=== PATIENT | male | born 1950 | race Caucasian/White ===

== ENCOUNTER 2024-01-06 10:34 | Day surgery (SDC) | payer MEDICARE ==
[~2024-01-06] VITALS: Ht 180.3 cm; Wt 94.5 kg
[~2024-01-06 10:34] MED LIST: Ketorolac 30 MG/ML VIAL ONE; LR 1,000 ML IV SCH; Lidocaine PF 2% (20 MG/ML) 5 ML VIAL ONE; Ondansetron 4 MG/2 ML VIAL ONE; Rocuronium 50 MG/5 ML Multi-Dose VIAL ONE; fentaNYL 50 MCG/ML 5 ML VIAL ONE
[2024-01-06 11:48] VITALS: BP 139/75; PULSE 47; TEMP 97.5
[2024-01-06] MEDS ORDERED: TENORMIN 5050 MG/TAB PO (11:51)
[2024-01-06] MEDS ORDERED: ZOCOR 10MG10 MG PO (11:51)
[2024-01-06] MEDS ORDERED: Ondansetron 4 MG/2 ML VIAL IV PRN ×2 (13:15→14:45)
[2024-01-06] MEDS ORDERED: hydrALAZINE 20 MG/ML 1 ML VIAL IV PRN (13:15)
[2024-01-06] MEDS ORDERED: fentaNYL 50 MCG/ML 2 ML VIAL IV PRN (13:15)
[2024-01-06] MEDS ORDERED: HYDROmorphone 2 MG/1 ML VIAL IV PRN (13:15)
[2024-01-06] MEDS ORDERED: hydrALAZINE 20 MG/ML 1 ML VIAL ONE (13:16)
[2024-01-06] MEDS ORDERED: Topical Skin Adhesive 1 EACH (1 ML) TOP ONE (13:45)
[2024-01-06] MEDS ORDERED: MOTRIN 600600 MG/TAB PO (14:43)
[2024-01-06] MEDS ORDERED: NORCO 325 MG-51 TAB PO (14:43)
[2024-01-06] MEDS ORDERED: Acetaminophen 325 MG TAB PO PRN (14:45)
[2024-01-06] MEDS ORDERED: Morphine 4 MG/ML VIAL IV PRN (14:45)
[2024-01-06] MEDS ORDERED: Ibuprofen 600 MG TAB PO PRN (14:45)
[2024-01-06 15:30] VITALS: BP 147/72; PULSE 48; TEMP 97.3
[2024-01-06 15:45] VITALS: BP 130/70; PULSE 48
[2024-01-06 16:00] VITALS: BP 162/77; PULSE 50
[2024-01-06 16:15] VITALS: BP 151/71; PULSE 53
--- NOTE | 2024-01-06 17:16 | NUR ---
1522 Received post-op report from MARTHA Blue. 1530 Patient returned to [facility] from PACU. Patient alert and oriented, breathing even and unlabored. 1538 Patient given muffins and juice for PO challenge. Tolerated well. 1600 Patient ambulatory to the restroom. Voided without difficulty. 1635 Reviewed physician discharge instructions and patient educational materials with patient and his . Questions invited and answered. 1654 Pt to the lobby via wheelchair for a ride home with his in POV.
[2024-01-06 17:23] VITALS: BP 147/72; PULSE 47
== END 2024-01-06 17:21 | disposition home or self-care (01) ==
LOC: SDCO 10:34
DX: K40.20 Bilateral inguinal hernia, without obstruction or gangrene, not specified as recurrent (principal); G47.33 Obstructive sleep apnea (adult) (pediatric)
CPT/HCPCS: C1781; J0360; J0690; J1885; J2405; J2704; J3010; J7120